=== PATIENT | male | born 1970 | race Caucasian/White ===

== ENCOUNTER 2017-03-14 15:55 | Emergency (ER) | payer OTHER ==
[2017-03-14 15:56] VITALS: BMI 21.7
[2017-03-14] MEDS ORDERED: Sodium Chloride 0.9% 1,000 ML IV ONE (16:32)
[2017-03-14] MEDS ORDERED: Lidocaine 2% Viscous 100 ml PO STA (16:32)
[2017-03-14] MEDS ORDERED: Aluminum Hydroxide/Magnesium Hydroxide Susp (30 mL) PO STA (16:32)
[2017-03-14] MEDS ORDERED: Sodium Chloride 0.9% 1,000 ML ONE (16:40)
[2017-03-14] MEDS ORDERED: Aluminum Hydroxide/Magnesium Hydroxide Susp (30 mL) ONE (16:40)
[2017-03-14 16:53] LABS: BASO # 0.1 K/uL (0.0-0.2); BASO % 0.4 % (0.0-2.0); EOS # 0.1 K/uL (0.0-0.7); EOS % 0.5 % (0.0-4.0); HEMATOCRIT 47.3 % (35.0-51.0); LYMPH # 3.8 K/uL (1.0-4.3); LYMPH % 27.8 % (20.0-40.0); MEAN CELL VOLUME 86.9 fL (80.0-94.0); MEAN CORPUSCULAR HEMOGLOBIN 29.3 pg (27.0-31.0); MEAN CORPUSCULAR HGB CONC 33.7 g/dL (33.0-37.0); MEAN PLATELET VOLUME 8.9 fL (7.2-11.7); MONO # 0.8 K/uL (0.0-0.8); MONO % 5.5 % (0.0-10.0); RED CELL DISTRIBUTION WIDTH 13.2 % (11.5-14.5); WHITE BLOOD COUNT 13.6 K/uL (4.8-10.8)
--- NOTE | 2017-03-14 16:55 | C.PDOC ---
History Of Present Illness The patient, a 46 y/o male, presents to the ED for evaluation of epigastric abdominal pain which began at 0900 today. Patient reports mild headache, nausea , and states he has been belching a lot. Patient states he has a history of acid reflux and reports he takes medication for it. Patient denies fever, chills , back pain, dysuria, diarrhea or constipation. Time Seen by Provider: 03/14/17 16:27 Chief Complaint (Nursing): Abdominal Pain History Per: Patient History/Exam Limitations: no limitations Onset/Duration Of Symptoms: Hrs Current Symptoms Are (Timing): Still Present Location Of Pain/Discomfort: Epigastric Radiation Of Pain To:: None Quality Of Discomfort: "Pain" Associated Symptoms: Nausea. denies: Fever, Chills, Vomiting, Diarrhea, Constipation, Urinary Symptoms (dysuria) Additional History Per: Patient Past Medical History Reviewed: Historical Data, Nursing Documentation, Vital Signs Vital Signs: Last Vital Signs Temp 98.2 F 03/14/17 15:58 Pulse 83 03/14/17 15:58 Resp 20 03/14/17 15:58 BP 149/93 H 03/14/17 15:58 Pulse Ox 100 03/14/17 17:13 - Medical History PMH: No Chronic Diseases Surgical History: No Surg Hx Family History: States: Unknown Family Hx - Social History Hx Tobacco Use: No Hx Alcohol Use: Yes (LAST NIGHT) Hx Substance Use: No - Immunization History Hx Tetanus Toxoid Vaccination: No Hx Influenza Vaccination: No Hx Pneumococcal Vaccination: No Review Of Systems Except As Marked, All Systems Reviewed And Found Negative. Constitutional: Negative for: Fever, Chills Gastrointestinal: Positive for: Nausea, Abdominal Pain (epigastric). Negative for: Vomiting, Diarrhea, Constipation Genitourinary: Negative for: Dysuria Musculoskeletal: Negative for: Back Pain Physical Exam - Physical Exam Appears: Non-toxic, Other (uncomfortable, belching ) Skin: Normal Color, Warm, Dry Head: Atraumatic, Normacephalic Eye(s): bilateral: Normal Inspection Oral Mucosa: Moist Neck: Normal ROM Chest: Symmetrical, No Deformity, No Tenderness Cardiovascular: Rhythm Regular, No Murmur Respiratory: Normal Breath Sounds, No Rales, No Rhonchi, No Wheezing Gastrointestinal/Abdominal: Bowel Sounds (hyperactive ), Soft, No Tenderness, No Guarding, No Rebound Back: Normal Inspection, No Vertebral Tenderness, No Paraspinal Tenderness Extremity: Normal ROM Neurological/Psych: Oriented x3, Normal Speech Gait: Steady ED Course And Treatment - Laboratory Results Result Diagrams: 03/14/17 16:38 03/14/17 16:38 Lab Interpretation: No Acute Changes O2 Sat by Pulse Oximetry: 100 (on RA) Pulse Ox Interpretation: Normal - Other Rad Obstructive Series XR X-Ray: Interpreted by Me, Viewed By Me, Read By Radiologist Interpretation: Accession No. : [id number]. Patient Name / ID : RJ VARNER / [id number]. Exam Date : 03/14/2017 16:40:03 ( Approved ). Study Comment : Sex / Age : M / 46Y. Creator : Verena Wilcox MD. Dictator : Verena Wilcox MD. General Dentist : Drafter Cartographic : Verena Wilcox MD. Approver2 : Report Date : 03/14/2017 17:02:53. My Comment : . PROCEDURE: Radiographs of the chest and abdomen (obstructive series). HISTORY: abd pain. COMPARISON: None available. FINDINGS: CHEST: Heart size appears within normal limits. No focal consolidation, significant pleural effusion, or definite pneumothorax identified.Please note that chest x-ray has limited sensitivity for the detection of pulmonary masses. ABDOMEN AND PELVIS: Nonobstructive bowel gas pattern. Mild constipation. No definite free air. Degenerative changes of the spine. IMPRESSION: Mild constipation. Medical Decision Making Medical Decision Making: Impression: 46 y/o male with epigastric abdominal pain, mild headache Plan: * labs * Obstructive Series Abdomen XR * Lidocaine 2% Viscous * Maalox PO * Pepcid IV * Zofran IV * IV fluids Progress Notes: labs and XRay ordered and reviewed with no acute findings. Patient received Lidocaine 2% Viscous PO, Maalox PO, Pepcid IV, Zofran IV, and IV fluids. Upon reevaluation, patient resting comfortably and reports pain has much improved. Abdomen remains soft. Discussed results with patient, and copy of report was provided. Patient feels comfortable going home and will be discharged. Patient given follow up instructions. Instructed to return to ER if symptoms worsen or new symptoms arise. Disposition Counseled Patient/Family Regarding: Need For Followup, Rx Given - Disposition Disposition: HOME/ ROUTINE Disposition Time: 18:17 Condition: STABLE Additional Instructions: Your labs normal. Follow up with your primary medical doctor or clinic in 2-5 days for further evaluation. Return to the emergency department at any time if symptoms persist or worsen. Prescriptions: Omeprazole 20 mg PO DAILY #30 capsule. 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 - Scribe Statement The provider has reviewed the documentation as recorded by the Scribe (Rhina Hall) All medical record entries made by the Scribe were at my direction and personally dictated by me. I have reviewed the chart and agree that the record accurately reflects my personal performance of the history, physical exam, medical decision making, and the department course for this patient. I have also personally directed, reviewed, and agree with the discharge instructions and disposition.
[2017-03-14 17:03] LABS: CHLORIDE 97 mmol/L (98-107)
[2017-03-14 17:04] LABS: POTASSIUM 4.5 mmol/L (3.6-5.2); SODIUM 136 mmol/L (132-148)
--- NOTE | 2017-03-14 17:04 | RAD ---
PROCEDURE: Radiographs of the chest and abdomen (obstructive series) HISTORY: abd pain COMPARISON: None available. FINDINGS: CHEST: Heart size appears within normal limits. No focal consolidation, significant pleural effusion, or definite pneumothorax identified.Please note that chest x-ray has limited sensitivity for the detection of pulmonary masses. ABDOMEN AND PELVIS: Nonobstructive bowel gas pattern. Mild constipation. No definite free air. Degenerative changes of the spine. IMPRESSION: Mild constipation.
[2017-03-14 17:06] LABS: CARBON DIOXIDE 26 mmol/L (22-30); GFR AFRICAN-AMERICAN > 60
[2017-03-14 17:07] LABS: ALB/GLOB RATIO 1.2 (1.0-2.1); ALKALINE PHOSPHATASE 101 U/L (38-126); ALT/SGPT 22 U/L (21-72); AST/SGOT 21 U/L (17-59); BILIRUBIN,TOTAL 1.3 mg/dL (0.2-1.3); BLOOD UREA NITROGEN 9 mg/dL (9-20); CALCIUM 9.9 mg/dl (8.6-10.4); GLUCOSE,RANDOM 89 mg/dL (75-110); TOTAL PROTEIN 8.5 g/dL (6.3-8.3)
[2017-03-14 18:00] LABS: RBC URINE < 1 /hpf (0-3); URINE BILIRUBIN NEGATIVE (NEGATIVE); URINE BLOOD NEGATIVE (NEGATIVE); URINE COLOR Yellow (YELLOW); URINE GLUCOSE (UA) NORMAL (Normal); URINE KETONE 1+ mg/dL (NEGATIVE); URINE LEUKOCYTE ESTERASE NEG Leu/uL (Negative); URINE PROTEIN NEGATIVE (NEGATIVE); URINE UROBILINOGEN NORMAL mg/dL (0.2-1.0); WBC URINE < 1 /hpf (0-5)
[2017-03-14 18:39] VITALS: BP 136/84; PULSE 71; RESP 16; TEMP 98; O2SAT 99
== END 2017-03-14 18:27 | disposition home or self-care (01) ==
LOC: C.ER 15:55
DX: R10.13 Epigastric pain (principal)
CPT/HCPCS: 74022; 80053; 81001; 83690; 85025; 96361; 96374; 96375; 99285; J2405; J7040

== ENCOUNTER 2017-06-17 17:59 | Emergency (ER) | payer OTHER ==
[2017-06-17 17:59] VITALS: BMI 21.7
--- NOTE | 2017-06-17 18:41 | C.PDOC ---
History Of Present Illness 46 y/o male, with no significant past medical history, presents to the emergency department for evaluation of intermittent shortness of breath since yesterday. Patient reports 2 episodes of difficulty breathing, nausea, and sweating. Otherwise, denies any chest pain, cough, sputum, or fever. Time Seen by Provider: 06/17/17 18:27 Chief Complaint (Nursing): Shortness Of Breath History Per: Patient History/Exam Limitations: no limitations Onset/Duration Of Symptoms: Days (1) Current Symptoms Are (Timing): Still Present Severity: None Pain Scale Rating Of: 0 Associated Symptoms: Sweating, Other (nausea). denies: Fever, Chills, Chest Pain, Bloody Cough, Heart Racing, Leg/Calf Pain, Ankle/Leg Swelling, Dizziness, Light-headedness, Anxiety, Tingling In Hands Or Face, Musle Spasms In Hands Or Feet Recent travel outside of the [place]: No Additional History Per: Patient Past Medical History Reviewed: Historical Data, Nursing Documentation, Vital Signs Vital Signs: Last Vital Signs Temp 98.1 F 06/17/17 18:19 Pulse 84 06/17/17 18:19 Resp 20 06/17/17 18:19 BP 122/85 06/17/17 18:19 Pulse Ox 96 06/17/17 19:35 Family History: States: Unknown Family Hx - Social History Hx Tobacco Use: No Hx Alcohol Use: Yes (LAST NIGHT) Hx Substance Use: No - Immunization History Hx Tetanus Toxoid Vaccination: Yes Hx Influenza Vaccination: Yes Hx Pneumococcal Vaccination: No Review Of Systems Except As Marked, All Systems Reviewed And Found Negative. Constitutional: Positive for: Sweats. Negative for: Fever, Chills Cardiovascular: Negative for: Chest Pain, Palpitations, Edema, Light Headedness Respiratory: Positive for: Shortness of Breath. Negative for: Cough, Hemoptysis , Pleuritic Pain, Sputum, Wheezing Gastrointestinal: Positive for: Nausea. Negative for: Vomiting, Abdominal Pain Skin: Negative for: Rash Neurological: Negative for: Weakness, Numbness, Headache, Dizziness Physical Exam - Physical Exam Appears: Non-toxic, No Acute Distress Skin: Normal Color, Warm, Dry Head: Atraumatic, Normacephalic Eye(s): bilateral: Normal Inspection Neck: Normal ROM, Supple Chest: Symmetrical Cardiovascular: Rhythm Regular, No Murmur Respiratory: Normal Breath Sounds, No Rales, No Rhonchi, No Wheezing Gastrointestinal/Abdominal: Soft, No Tenderness Extremity: Normal ROM Extremity: Bilateral: Atraumatic Neurological/Psych: Oriented x3, Normal Speech, Normal Cognition ED Course And Treatment - Laboratory Results Result Diagrams: 06/17/17 18:55 06/17/17 18:55 O2 Sat by Pulse Oximetry: 96 Pulse Ox Interpretation: Normal Progress Note: Blood work, urinalysis, EKG, CXR ordered and reviewed. Medical Decision Making Medical Decision Making: sob- r/o infectious cardiac metabolic abnormaloty- perc negekg nsr [address] t wave changes 735: pt reassesed: speaking full sentences in nad. cxr neg as read by me. vitals stable. pt states feels well to go home. specifically requests medication for "gas" Disposition - Disposition Referrals: [facility] [Outside] [facility] [Outside] Disposition: HOME/ ROUTINE Disposition Time: 19:42 Condition: STABLE Additional Instructions: please follow up with your doctor. return toe rwith worsening symtoms or concerns. Prescriptions: Famotidine [Pepcid] 20 mg PO DAILY #20 tab Instructions: Dyspnea (GEN) - Clinical Impression Clinical Impression: Dyspnea - Scribe Statement The provider has reviewed the documentation as recorded by the Caseyibgilma Hall All medical record entries made by the Caseyibe were at my direction and personally dictated by me. I have reviewed the chart and agree that the record accurately reflects my personal performance of the history, physical exam, medical decision making, and the department course for this patient. I have also personally directed, reviewed, and agree with the discharge instructions and disposition.
[2017-06-17 19:08] LABS: BASO # 0.1 K/uL (0.0-0.2); BASO % 0.5 % (0.0-2.0); EOS # 0.2 K/uL (0.0-0.7); EOS % 1.4 % (0.0-4.0); HEMOGLOBIN 15.1 g/dL (12.0-18.0); LYMPH # 3.5 K/uL (1.0-4.3); LYMPH % 30.4 % (20.0-40.0); MEAN CELL VOLUME 86.7 fL (80.0-94.0); MEAN CORPUSCULAR HEMOGLOBIN 28.9 pg (27.0-31.0); MEAN CORPUSCULAR HGB CONC 33.3 g/dL (33.0-37.0); MEAN PLATELET VOLUME 9.1 fL (7.2-11.7); MONO # 0.6 K/uL (0.0-0.8); NEUT # 7.3 K/uL (1.8-7.0); NEUT % 62.7 % (50.0-75.0); NRBC % 0.1 % (0.0-2.0); RBC 5.25 Mil/uL (4.40-5.90); RED CELL DISTRIBUTION WIDTH 13.7 % (11.5-14.5); WHITE BLOOD COUNT 11.6 K/uL (4.8-10.8)
[2017-06-17 19:11] LABS: URINE BILIRUBIN NEGATIVE (NEGATIVE); URINE BLOOD NEGATIVE (NEGATIVE); URINE CLARITY Clear (Clear); URINE COLOR Straw (YELLOW); URINE GLUCOSE (UA) NORMAL (Normal); URINE LEUKOCYTE ESTERASE NEG Leu/uL (Negative); URINE NITRATE NEGATIVE (NEGATIVE); URINE PROTEIN NEGATIVE (NEGATIVE); URINE UROBILINOGEN NORMAL mg/dL (0.2-1.0)
[2017-06-17 19:16] LABS: ALBUMIN 4.2 g/dL (3.5-5.0)
[2017-06-17 19:19] LABS: ALB/GLOB RATIO 1.1 (1.0-2.1); ALT/SGPT 32 U/L (21-72); AST/SGOT 22 U/L (17-59); BLOOD UREA NITROGEN 10 mg/dL (9-20); GFR AFRICAN-AMERICAN > 60; GFR NON-AFRICAN AMERICAN > 60
[2017-06-17 19:21] LABS: PROTHROMBIN TIME 11.3 SECONDS (9.7-12.2)
[2017-06-17 19:29] LABS: B-TYPE NATRIURETIC PEPTIDE 32.4 pg/mL (0-450)
[2017-06-17 19:56] VITALS: BP 103/75; PULSE 80; RESP 18; TEMP 98.2; O2SAT 99
--- NOTE | 2017-06-18 08:30 | RAD ---
HISTORY: chest pain COMPARISON: 09/23/2016 TECHNIQUE: Chest PA and lateral FINDINGS: LUNGS: Mild venous congestion. Right hilar prominence. PLEURA: No significant pleural effusion identified. No pneumothorax apparent. CARDIOVASCULAR: Normal. OSSEOUS STRUCTURES: No significant abnormalities. VISUALIZED UPPER ABDOMEN: Normal. OTHER FINDINGS: None. IMPRESSION: Mild venous congestion. Right hilar prominence.
--- NOTE | 2017-06-18 12:13 | CARD ---
APPROVED REPORT EKG Measurement Heart [id number] <Conclusion> Normal sinus rhythm Normal ECG
== END 2017-06-17 19:59 | disposition home or self-care (01) ==
LOC: C.ER 17:59
DX: R06.00 Dyspnea, unspecified (principal)

== ENCOUNTER 2017-11-14 19:40 | Emergency (ER) | payer OTHER ==
[2017-11-14 19:40] VITALS: BMI 21.7
--- NOTE | 2017-11-14 20:16 | C.PDOC ---
Time Seen by Provider: 11/14/17 20:09 Chief Complaint (Nursing): Abdominal Pain Past Medical History Vital Signs: Last Vital Signs Temp 97.7 F 11/14/17 19:48 Pulse 86 11/14/17 19:48 Resp 24 11/14/17 19:48 BP 128/92 H 11/14/17 19:48 Pulse Ox 100 11/14/17 19:48 Family History: States: Unknown Family Hx - Social History Hx Tobacco Use: No Hx Alcohol Use: Yes (LAST NIGHT) Hx Substance Use: No - Immunization History Hx Tetanus Toxoid Vaccination: Yes Hx Influenza Vaccination: Yes Hx Pneumococcal Vaccination: No ED Course And Treatment O2 Sat by Pulse Oximetry: 100 Disposition - Disposition
--- NOTE | 2017-11-14 20:22 | C.PDOC ---
History Of Present Illness 47yo male, presents to ED with complaints of abdominal pain, described as "gas pain" present for the past 2 days. Patient reports he feels bloated. Of note, he states he has had "gastric problems" in the past. He states his last bowel movement was this morning and was normal. He reports taking Zantac for his symptoms with no relief. Denies any nausea, vomiting, diarrhea. No other complaints. Time Seen by Provider: 11/14/17 20:09 Chief Complaint (Nursing): Abdominal Pain History Per: Patient History/Exam Limitations: no limitations Onset/Duration Of Symptoms: Days (2) Location Of Pain/Discomfort: Diffuse Quality Of Discomfort: "Pain", Gas Last Bowel Movement: Today Past Medical History Reviewed: Historical Data, Nursing Documentation, Vital Signs Vital Signs: Last Vital Signs Temp 97.7 F 11/14/17 19:48 Pulse 86 11/14/17 19:48 Resp 24 11/14/17 19:48 BP 128/92 H 11/14/17 19:48 Pulse Ox 100 11/14/17 20:25 - Medical History PMH: No Chronic Diseases Surgical History: No Surg Hx Family History: States: No Known Family Hx, Unknown Family Hx - Social History Hx Tobacco Use: No Hx Alcohol Use: Yes (LAST NIGHT) Hx Substance Use: No - Immunization History Hx Tetanus Toxoid Vaccination: Yes Hx Influenza Vaccination: Yes Hx Pneumococcal Vaccination: No Review Of Systems Gastrointestinal: Positive for: Abdominal Pain (gas pain). Negative for: Nausea , Vomiting, Diarrhea Physical Exam - Physical Exam Appears: Non-toxic, No Acute Distress Skin: Normal Color Oral Mucosa: Moist Neck: Supple Gastrointestinal/Abdominal: Normal Exam, Soft, No Tenderness, No Mass, No Guarding, No Rebound ED Course And Treatment O2 Sat by Pulse Oximetry: 100 (RA) Pulse Ox Interpretation: Normal Medical Decision Making Medical Decision Making: Plan: -- Mylicone 80 mg PO Disposition Counseled Patient/Family Regarding: Diagnosis, Rx Given - Disposition Disposition: HOME/ ROUTINE Disposition Time: 20:30 Condition: STABLE Prescriptions: Simethicone [Bicarsim] 80 mg PO TID #15 tab Forms: [employer] (Armenian) - Clinical Impression Clinical Impression: Abdominal bloating, Abdominal pain - Scribe Statement The provider has reviewed the documentation as recorded by the Sabiha Langley Provider Attestation: All medical record entries made by the Scribe were at my direction and personally dictated by me. I have reviewed the chart and agree that the record accurately reflects my personal performance of the history, physical exam, medical decision making, and the department course for this patient. I have also personally directed, reviewed, and agree with the discharge instructions and disposition.
[2017-11-14] MEDS ORDERED: Simethicone 80 mg Chewtab PO STA (20:23)
[2017-11-14 20:28] LABS: RBC URINE < 1 /hpf (0-3); URINE BILIRUBIN NEGATIVE (NEGATIVE); URINE BLOOD NEGATIVE (NEGATIVE); URINE COLOR Yellow (YELLOW); URINE GLUCOSE (UA) NORMAL (Normal); URINE KETONE NEGATIVE (NEGATIVE); URINE LEUKOCYTE ESTERASE NEG Leu/uL (Negative); URINE PROTEIN NEGATIVE (NEGATIVE); URINE UROBILINOGEN NORMAL mg/dL (0.2-1.0); WBC URINE < 1 /hpf (0-5)
[2017-11-14 20:42] VITALS: BP 123/88; PULSE 96; RESP 18; TEMP 98.9; O2SAT 97
== END 2017-11-14 20:40 | disposition home or self-care (01) ==
LOC: C.ER 19:40
DX: R14.0 Abdominal distension (gaseous) (principal); R10.9 Unspecified abdominal pain

== ENCOUNTER 2018-03-14 16:14 | Emergency (ER) | payer OTHER ==
[2018-03-14 16:14] VITALS: BMI 21.7
[2018-03-14 16:18] VITALS: RESP 18
--- NOTE | 2018-03-14 16:44 | C.PDOC ---
History Of Present Illness 47 year old male presents to the emergency department with complaints of a fever for the past two to three days. Patient states he measured his highest temperature at 100.2 F, and has taken Tylenol prior to arrive. Patient is confirms dyspnea on exertion, but denies cough, chest pain, and orthopnea. He is currently asymptomatic. Patient also states that he smokes. FEVER X 2-3 DAYS. 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 NO ASSOC COUGH, CP, ORTHOPNEA. CURRENTLY ASYMPT. +SMOKER EXAM NARD HEENT NEG LUNGS CTA B/L NO W/R/R REMAINDER NEG Time Seen by Provider: 03/14/18 16:40 Chief Complaint (Nursing): Fever History Per: Patient History/Exam Limitations: no limitations Onset/Duration Of Symptoms: Days (3) Current Symptoms Are (Timing): Gone Associated Symptoms: Other (dyspnea on exertion). denies: Cough Past Medical History Reviewed: Historical Data, Nursing Documentation, Vital Signs Vital Signs: Last Vital Signs Temp 98.5 F 03/14/18 16:17 Pulse 84 03/14/18 16:17 Resp 18 03/14/18 16:17 BP 107/72 03/14/18 16:17 Pulse Ox 100 03/14/18 17:09 - Medical History PMH: No Chronic Diseases Surgical History: No Surg Hx Family History: States: No Known Family Hx - Social History Hx Tobacco Use: Yes Hx Alcohol Use: Yes Hx Substance Use: No - Immunization History Hx Tetanus Toxoid Vaccination: No Hx Influenza Vaccination: Yes Hx Pneumococcal Vaccination: No Review Of Systems Except As Marked, All Systems Reviewed And Found Negative. Constitutional: Positive for: Fever Cardiovascular: Negative for: Chest Pain Respiratory: Positive for: SOB with Excertion. Negative for: Cough, Other ( orthopnea) Physical Exam - Physical Exam Appears: Non-toxic, No Acute Distress Head: Atraumatic, Normacephalic Eye(s): bilateral: Normal Inspection Ear(s): Bilateral: Normal Nose: Normal Throat: Normal Respiratory: No Rales, No Rhonchi, No Wheezing, Other (lungs clear to auscultation ) ED Course And Treatment O2 Sat by Pulse Oximetry: 100 (RA) Pulse Ox Interpretation: Normal - Radiology CXR: Interpreted by Me, Viewed By Me CXR Interpretation: Yes: No Acute Disease Nexus Criteria: Negative Progress Note: Plan: Albuterol 2.5mg INH. Nebulizer Treatment. CXR Two Views Reevaluation Time: 17:39 Reassessment Condition: Improved (S/P NEB RAMSEY NOW RESOLVED. PS NOW ASYMPT. ADVISED STOP SMOKING.) Disposition Counseled Patient/Family Regarding: Studies Performed, Diagnosis, Need For Followup, Rx Given, Smoking Cessation - Disposition Referrals: [facility] [Outside] [facility] [Outside] Disposition: HOME/ ROUTINE Disposition Time: 17:40 Condition: IMPROVED Prescriptions: Albuterol HFA [Ventolin HFA 90 mcg/actuation (8 g)] 1 puff IH Q4 #1 inhaler Instructions: Quitting Smoking, Risk Factors for COPD Forms: [employer] (Citizen Of [place]) - Clinical Impression Clinical Impression: Bronchospasm, acute - Scribe Statement The provider has reviewed the documentation as recorded by the Scribe (Abhi Weber) Provider Attestation: All medical record entries made by the Scribe were at my direction and personally dictated by me. I have reviewed the chart and agree that the record accurately reflects my personal performance of the history, physical exam, medical decision making, and the department course for this patient. I have also personally directed, reviewed, and agree with the discharge instructions and disposition.
[2018-03-14] MEDS ORDERED: Albuterol 0.083% Inhal Sol (2.5 mg/3 mL) UD INH STA (16:51)
[2018-03-14] MEDS ORDERED: Albuterol 0.083% Inhal Sol (2.5 mg/3 mL) UD ONE (17:01)
--- NOTE | 2018-03-14 17:01 | RAD ---
HISTORY: FEVER SOB COMPARISON: Comparison is made to 06/17/2017 TECHNIQUE: Chest PA and lateral FINDINGS: LUNGS: No active pulmonary disease. PLEURA: No significant pleural effusion identified. No pneumothorax apparent. CARDIOVASCULAR: Normal. OSSEOUS STRUCTURES: No significant abnormalities. VISUALIZED UPPER ABDOMEN: Normal. OTHER FINDINGS: None. IMPRESSION: No active disease.
[2018-03-14 17:50] VITALS: BP 104/67; PULSE 78; TEMP 98; O2SAT 98
== END 2018-03-14 17:51 | disposition home or self-care (01) ==
LOC: C.ER 16:14
DX: J98.01 Acute bronchospasm (principal); F17.210 Nicotine dependence, cigarettes, uncomplicated